=== PATIENT | male | born 1980 | race American Indian/Alaskan Native ===

== ENCOUNTER 2018-07-08 00:15 | Emergency (ER) | payer SELFPAY ==
[2018-07-08] MEDS ORDERED: ZOFRAN ODT ONE (08:22)
== END 2018-07-08 01:19 | disposition left against medical advice (07) ==
LOC: ED 00:15
DX: R21 Rash and other nonspecific skin eruption (principal); Z53.21 Procedure and treatment not carried out due to patient leaving prior to being seen by health care provider
CPT/HCPCS: Q0162

== ENCOUNTER 2019-03-16 00:03 | Emergency (ER) | payer SELFPAY ==
[2019-03-16 00:08] VITALS: BP 112/63
--- NOTE | 2019-03-16 03:10 | Emergency Department Report ---
ED Male HPI - General Chief complaint: Rectal Pain Stated complaint: HEMORRHOIDS Time Seen by Provider: 03/16/19 02:40 Source: patient Mode of arrival: Ambulatory Limitations: No Limitations - History of Present Illness Initial comments: Patient is a 38-year-old male presents to ED complaining of rectal pain from his hemorrhoids for the past 2 days. Patient states that 2 days ago he had some pain to his rectal area. Patient states that he saw some blood in his stool yesterday. Patient's is non-episode of this about a month ago. He denies dysu aime, fever, abdominal pain - Related Data Previous Rx's Medication Instructions Recorded Last Taken Type Docusate Sodium [Colace] 100 mg PO BID #20 capsule 03/16/19 Unknown Rx Hydrocortisone [Anucort-HC SUPPOS] 25 mg RC BID 10 Days #20 supp.rect 03/16/19 Unknown Rx Allergies Allergy/AdvReac Type Severity Reaction Status Date / Time No Known Allergies Allergy Verified 06/01/15 21:32 ED Review of Systems ROS: Stated complaint: HEMORRHOIDS Other details as noted in HPI Comment: All other systems reviewed and negative ED Past Medical Hx - Past Medical History Previous Medical History?: No - Surgical History Past Surgical History?: No - Social History Smoking Status: Never Smoker Substance Use Type: Marijuana - Medications Home Medications: Home Medications Medication Instructions Recorded Confirmed Last Taken Type Docusate Sodium [Colace] 100 mg PO BID #20 capsule 03/16/19 Unknown Rx Hydrocortisone [Anucort-HC SUPPOS] 25 mg RC BID 10 Days #20 supp.rect 03/16/19 Unknown Rx ED Physical Exam - General Limitations: No Limitations General appearance: alert, in no apparent distress - Head Head exam: Present: atraumatic, normocephalic - Eye Eye exam: Present: normal appearance - ENT ENT exam: Present: mucous membranes moist - Neck Neck exam: Present: normal inspection - Respiratory Respiratory exam: Present: normal lung sounds bilaterally. Absent: respiratory distress - Cardiovascular Cardiovascular Exam: Present: regular rate, normal rhythm. Absent: systolic murmur, diastolic murmur, rubs, gallop - GI/Abdominal GI/Abdominal exam: Present: soft, normal bowel sounds. Absent: distended, tenderness, guarding - Rectal Rectal exam: Present: deferred, normal inspection, normal rectal tone. Absent: hemorrhoids (no external hemorrhoids noted.), mass - exam: Present: normal inspection External exam: Present: normal external exam - Extremities Exam Extremities exam: Present: normal inspection - Back Exam Back exam: Present: normal inspection - Neurological Exam Neurological exam: Present: alert, oriented X3 - Psychiatric Psychiatric exam: Present: normal affect, normal mood - Skin Skin exam: Present: warm, dry, intact, normal color. Absent: rash ED Course Vital Signs 03/16/19 00:07 Temperature 97.9 F Pulse Rate 68 Respiratory 18 Rate Blood Pressure 112/63 O2 Sat by Pulse 99 Oximetry ED Medical Decision Making - Medical Decision Making 38-year-old male presents with the hemorrhoidal pain. Patient states that he's use preparation H with me the hemorrhoids much better. Discussed follow-up with primary care physician. Patient is in no acute distress. Critical care attestation.: If time is entered above; I have spent that time in minutes in the direct care of this critically ill patient, excluding procedure time. ED Disposition Clinical Impression: Hemorrhoid Disposition: DC-01 TO HOME OR SELFCARE Is pt being admited?: No Does the pt Need Aspirin: No Condition: Stable Instructions: Hemorrhoids (ED), Rectal Bleeding (ED) Additional Instructions: Make sure to follow up with the primary care physician as discussed. Take all your medications as you've been prescribed. If you have any worsening symptoms or develop new symptoms please return to ED immediately. Prescriptions: Hydrocortisone [Anucort-HC SUPPOS] 25 mg RC BID 10 Days #20 supp.rect Docusate Sodium [Colace] 100 mg PO BID #20 capsule Referrals: NICKY YOUSSEF MD [Primary Care Provider] - 3-5 Days [facility] [Provider Group] - 3-5 Days [facility] [Provider Group] - 3-5 Days Forms: Accompanied Note, Work/School Release Form(ED) Time of Disposition: 03:14
== END 2019-03-16 03:45 | disposition home or self-care (01) ==
LOC: ED 00:03
DX: K64.9 Unspecified hemorrhoids (principal); F12.10 Cannabis abuse, uncomplicated
CPT/HCPCS: 99282